=== PATIENT | male | born 1955 | race Caucasian/White ===

== ENCOUNTER 2021-05-12 09:58 | Inpatient (IN) | payer OTHER ==
[2021-05-12 10:30] LABS: #Eosinphils 0.1 10x3/uL (0.0-0.5); #Neutrophils 9.1 10x3/uL (1.5-8.4); %Basophils 0.4 % (0.0-2.0); %Eosinophils 0.5 % (0.0-6.0); %Lymphocytes 9.6 % (18.0-47.0); %Monocytes 9.2 % (0.0-10.0); Hemoglobin 14.9 g/dL (13.5-17.5); Mean Corpuscular Hemoglobin 28.8 pg (27.0-33.0); Mean Corpuscular Volume 87.2 fl (81.2-95.1); Mean Platelet Volume 9.3 fl (7.4-10.4); Platelet Count 294 10x3/uL (150-450); RBC Distribution Width 14.4 % (11.5-14.5); Red Blood Cell (RBC) Count 5.17 10x6/uL (4.32-5.72); White Blood Cell (WBC) Count 11.3 10x3/uL (3.5-10.5)
[2021-05-12 10:59] LABS: ALT (SGPT) 54 U/L (8-55); AST (SGOT) 137 U/L (5-34); Alkaline Phosphatase 96 U/L (40-110); Anion Gap 11 mmol/L (10-20); BUN (Urea Nitrogen) 10 mg/dL (8.4-25.7); Bilirubin, Total 0.7 mg/dL (0.2-1.2); Calc. Creatinine Clearance 0 mL/min (70-130); Calcium 8.8 mg/dL (7.8-10.44); Carbon Dioxide 28 mmol/L (23-31); Chloride 104 mmol/L (98-107); Globulin 3.1 g/dL (2.4-3.5); Glucose 117 mg/dL (80-115); Potassium 4.1 mmol/L (3.5-5.1); Protein, Total 7.1 g/dL (5.8-8.1); Sodium 139 mmol/L (136-145)
[2021-05-12 11:44] LABS: CKMB 106.4 ng/mL (0-6.6)
[2021-05-12] MEDS ORDERED: Nitroglycerin 50 MG/250 ML BOT 250 ML ONE (12:32)
[2021-05-12] MEDS ORDERED: Heparin 10,000 UNITS/ 10 ML VIAL ONE (12:33)
[2021-05-12] MEDS ORDERED: Adenosine 6 MG/2 ML VIAL ONE (12:33)
[2021-05-12] MEDS ORDERED: Verapamil 5 MG/2 ML VIAL ONE (12:33)
[2021-05-12] MEDS ORDERED: Bivalirudin 250 MG VIAL ONE (12:34)
[2021-05-12] MEDS ORDERED: Lidocaine 1% PF 5 ML VIAL ONE (12:55)
[2021-05-12] MEDS ORDERED: Ondansetron PF 4 MG/2 ML Vial ONE (13:09)
[2021-05-12] MEDS ORDERED: Fentanyl 100 MCG/2 ML VIAL ONE (13:09)
[2021-05-12] MEDS ORDERED: Midazolam HCl 2 mg/2 ml Vial ONE (13:10)
[2021-05-12] MEDS ORDERED: Atropine Sulfate 0.4 mg/1 ml Vial ONE (13:11)
[2021-05-12] MEDS ORDERED: TICAGRELOR 90 MG TABLET ONE (13:28)
[2021-05-12] MEDS ORDERED: HYDROcodone/Acetaminophen 5/325 mg Tablet PO PRN (14:05)
[2021-05-12] MEDS ORDERED: Loperamide HCl 2 MG CAP PO PRN (14:05)
[2021-05-12] MEDS ORDERED: Ondansetron ODT 4 MG TAB PO PRN (14:05)
[2021-05-12] MEDS ORDERED: Acetaminophen 325 MG TAB PO PRN (14:05)
[2021-05-12] MEDS ORDERED: Senokot S 8.6-50 MG TAB PO PRN (14:05)
[2021-05-12] MEDS ORDERED: Guaifenesin DM 100-10/5 ML UDCUP PO PRN (14:05)
[2021-05-12] MEDS ORDERED: HYDROcodone/Acetaminophen 7.5/325 mg Tablet PO PRN (14:05)
[2021-05-12] MEDS ORDERED: Zolpidem Tartrate 5 MG TAB PO PRN (14:05)
[2021-05-12] MEDS ORDERED: Calcium Carbonate 500 MG ChewTAB PO PRN (14:05)
[2021-05-12] MEDS ORDERED: Nitroglycerin 0.4 MG TAB (25 Tab Bottle) SL PRN (14:11)
[2021-05-12] MEDS ORDERED: Acetaminophen/Codeine 30-300mg Tablet PO PRN ×2 (14:11)
[2021-05-12] MEDS ORDERED: Sodium Chloride 0.9% 200 ML IV PRN (14:11)
[2021-05-12 15:30] VITALS: BMI 27.3
[2021-05-12] MEDS: Sodium Chloride 0.9% 1,000 ML IV SCH (16:19)
[2021-05-12 16:32] LABS: Troponin I 75.657 ng/mL (< 0.028)
[2021-05-12] MEDS ORDERED: Lisinopril 2.5 MG TAB PO SCH (17:00)
[2021-05-12] MEDS ORDERED: FLU VACC QS2021-22(65YR UP)/PF 240 MCG/0.7 ML SYRINGE IM ONE (17:15)
[2021-05-12 19:48] LABS: Troponin I 94.582 ng/mL (< 0.028)
[2021-05-12] MEDS: Atorvastatin Calcium 40 MG TAB PO SCH (20:42)
[2021-05-12] MEDS: Metoprolol Tartrate 25 MG TAB PO SCH (20:42)
[2021-05-12] MEDS: TICAGRELOR 90 MG TABLET PO SCH (20:42)
[2021-05-13] MEDS: Sodium Chloride 0.9% 1,000 ML IV SCH (02:36)
[2021-05-13 04:36] LABS: Hemoglobin 12.7 g/dL (13.5-17.5); Mean Corpuscular HGB CONC 32.3 g/dL (32.0-36.0); Mean Corpuscular Hemoglobin 28.6 pg (27.0-33.0); Mean Corpuscular Volume 88.5 fl (81.2-95.1); Mean Platelet Volume 9.8 fl (7.4-10.4); Platelet Count 239 10x3/uL (150-450); RBC Distribution Width 14.5 % (11.5-14.5); Red Blood Cell (RBC) Count 4.44 10x6/uL (4.32-5.72); White Blood Cell (WBC) Count 8.8 10x3/uL (3.5-10.5)
[2021-05-13 05:07] LABS: ALT (SGPT) 43 U/L (8-55); AST (SGOT) 122 U/L (5-34); Albumin 3.3 g/dL (3.4-4.8); Alkaline Phosphatase 72 U/L (40-110); Anion Gap 11 mmol/L (10-20); BUN (Urea Nitrogen) 15 mg/dL (8.4-25.7); Bilirubin, Total 1.1 mg/dL (0.2-1.2); Calc. Creatinine Clearance 118 mL/min (70-130); Calcium 8.3 mg/dL (7.8-10.44); Carbon Dioxide 24 mmol/L (23-31); Cardiac Risk 4.5 (Less than 4.5); Chloride 108 mmol/L (98-107); Cholesterol 192 mg/dl (< 200 Desired); Globulin 2.7 g/dL (2.4-3.5); Glucose 106 mg/dL (80-115); HDL Cholesterol 43 mg/dL (>60 Neg Risk); LDL Cholesterol, Calculated 123 mg/dL; Potassium 3.6 mmol/L (3.5-5.1); Sodium 139 mmol/L (136-145); Triglycerides 129 mg/dL (Less than 150)
[2021-05-13 06:29] LABS: MDiff Complete? YES
[2021-05-13 06:30] LABS: Platelet Morphology Comment Appears Adequate; RBC Morphology Normal
[2021-05-13 06:33] LABS: Lymphocytes 10 % (21-51); Monocytes 11 % (0-10); Neutrophil 78 % (42-75)
[2021-05-13 06:34] LABS: Eosinophils 1 % (0-10)
[2021-05-13] MEDS: TICAGRELOR 90 MG TABLET PO SCH ×2 (08:22→20:58)
[2021-05-13] MEDS: Aspirin 81 mg Enteric Coated Tablet PO SCH ×2 (08:22→08:23)
[2021-05-13] MEDS: Metoprolol Tartrate 25 MG TAB PO SCH ×2 (08:23→20:59)
[2021-05-13] MEDS: Enoxaparin Sodium 40 MG/0.4 ML SYRINGE SC SCH (08:26)
[2021-05-13] MEDS ORDERED: Lisinopril 2.5 MG TAB PO SCH ×2 (09:00→10:46)
[2021-05-13] MEDS: Atorvastatin Calcium 40 MG TAB PO SCH (20:58)
[2021-05-14] MEDS: Aspirin 81 mg Enteric Coated Tablet PO SCH (08:16)
[2021-05-14] MEDS: TICAGRELOR 90 MG TABLET PO SCH (08:17)
[2021-05-14] MEDS: Enoxaparin Sodium 40 MG/0.4 ML SYRINGE SC SCH (08:17)
[2021-05-14] MEDS: Metoprolol Tartrate 25 MG TAB PO SCH (08:17)
[2021-05-14] MEDS ORDERED: Lisinopril 5 MG TAB PO SCH (09:00)
[2021-05-14 10:43] VITALS: BP 124/82; TEMP 97.7
[2021-05-15] MEDS ORDERED: Lisinopril 5 MG TAB PO SCH (09:00)
== END 2021-05-14 11:52 | disposition home or self-care (01) | DRG 247 ==
LOC: CSHERS 09:58 → CSHIMCU 14:25
PROVIDERS: ADMIT Specialist; ATTEND Specialist
PROC: 027034Z Dilation of Coronary Artery, One Artery with Drug-eluting Intraluminal Device, Percutaneous Approach (ICD-10-PCS; principal; 2021-05-12)
PROC: 02C03ZZ Extirpation of Matter from Coronary Artery, One Artery, Percutaneous Approach (ICD-10-PCS; 2021-05-12)
PROC: 4A023N7 Measurement of Cardiac Sampling and Pressure, Left Heart, Percutaneous Approach (ICD-10-PCS; 2021-05-12)
PROC: B2111ZZ Fluoroscopy of Multiple Coronary Arteries using Low Osmolar Contrast (ICD-10-PCS; 2021-05-12)
PROC: B2151ZZ Fluoroscopy of Left Heart using Low Osmolar Contrast (ICD-10-PCS; 2021-05-12)
DX: I21.3 ST elevation (STEMI) myocardial infarction of unspecified site (principal); I50.20 Unspecified systolic (congestive) heart failure; E78.5 Hyperlipidemia, unspecified; I25.111 Atherosclerotic heart disease of native coronary artery with angina pectoris with documented spasm; I11.0 Hypertensive heart disease with heart failure
CPT/HCPCS: 36415; 71045; 80053; 80061; 82553; 84484; 85025; 85347; 92928; 92973; 93005; 93010; 93306; 93458; 99152; 99153; C1713; C1874; C1887; C9600; J0153; J0461; J0583; J1644; J1650; J2250; J2405; J3010; J7050

== ENCOUNTER 2022-06-13 23:19 | Emergency (ER) | payer OTHER ==
[2022-06-14] MEDS ORDERED: Acetaminophen 500 MG TAB ONE (00:42)
[2022-06-14] MEDS ORDERED: Nitroglycerin 0.4 MG TAB 1 EACH ONE (00:42)
[2022-06-14 01:00] LABS: #Basophils 0.1 10x3/uL (0.0-0.2); #Eosinphils 0.3 10x3/uL (0.0-0.5); #Monocytes 0.6 10x3/uL (0.0-1.1); #Neutrophils 3.4 10x3/uL (1.5-8.4); %Basophils 0.9 % (0.0-2.0); %Eosinophils 5.8 % (0.0-6.0); %Lymphocytes 25.2 % (18.0-47.0); %Monocytes 9.5 % (0.0-10.0); %Neutrophils 58.4 % (40.0-75.0); Mean Corpuscular HGB CONC 32.6 g/dL (32.0-36.0); Mean Corpuscular Hemoglobin 28.9 pg (27.0-33.0); Mean Corpuscular Volume 88.5 fl (81.2-95.1); Mean Platelet Volume 9.7 fl (7.4-10.4); Platelet Count 225 10x3/uL (150-450); RBC Distribution Width 14.1 % (11.5-14.5); Red Blood Cell (RBC) Count 4.85 10x6/uL (4.32-5.72); White Blood Cell (WBC) Count 5.9 10x3/uL (3.5-10.5)
[2022-06-14 01:13] LABS: ALT (SGPT) 37 U/L (8-55); AST (SGOT) 35 U/L (5-34); Albumin 4.2 g/dL (3.4-4.8); Alkaline Phosphatase 71 U/L (40-110); Anion Gap 15 mmol/L (10-20); BUN (Urea Nitrogen) 21 mg/dL (8.4-25.7); Bilirubin, Total 0.6 mg/dL (0.2-1.2); Calc. Creatinine Clearance 0 mL/min (70-130); Carbon Dioxide 24 mmol/L (23-31); Chloride 108 mmol/L (98-107); Estimated GFR 78; Globulin 2.5 g/dL (2.4-3.5); Glucose 100 mg/dL (80-115); Potassium 4.1 mmol/L (3.5-5.1); Protein, Total 6.7 g/dL (5.8-8.1); Sodium 143 mmol/L (136-145)
[2022-06-14 03:21] LABS: Troponin I Less than 0.010 ng/mL (< 0.028)
== END 2022-06-14 03:32 | disposition home or self-care (01) ==
LOC: CSHERS 23:19
DX: R07.89 Other chest pain (principal); I10 Essential (primary) hypertension; I25.10 Atherosclerotic heart disease of native coronary artery without angina pectoris; I25.2 Old myocardial infarction; Z79.899 Other long term (current) drug therapy
CPT/HCPCS: 71045; 80053; 84484; 85025; 93005